=== PATIENT | female | born 1965 | race Caucasian/White ===

== ENCOUNTER 2016-09-01 09:42 | Emergency (ER) | payer OTHER ==
--- NOTE | 2016-09-01 10:12 | EDDOCDS ---
Physician Documentation [facility] Name: Paz Hyatt Age: 51 yrs Sex: Female : 1965 Arrival Date: 09/01/2016 Time: 09:42 Bed Triage 3 Private MD: Disposition: 09/01/16 10:05 Discharged to Home/Self Care. Impression: Zoster [herpes zoster]. - Condition is Stable. - Discharge Instructions: Shingles, [id number]. - Prescriptions for Ibuprofen 800 mg Oral Tablet - take 1 tablet by ORAL route every 8 hours As needed take with food; 30 tablet. [place] 5- 325 mg Oral Tablet - take 1 tablet by ORAL route every 6 hours As needed MDD: 4 tabs; 10 tablet. Valtrex 1 g Oral Tablet - take 1 tablet by ORAL route every 8 hours for 7 days; 21 tablet. - Medication Reconciliation, Local Pharmacy Hours form. - Follow up: Private Physician; When: 1 - 2 days; Reason: Recheck today's complaints, Continuance of care. Follow up: Emergency Department; Reason: Worsening of conditions. - Problem is new. - Symptoms are unchanged. Historical: - Allergies: SULFA (SULFONAMIDES); - Home Meds: 1. none - PMHx: none; - PSHx: ; left tib repair; right acl reconstruction; - Social history: Smoking status: Patient states was never smoker of tobacco. No barriers to communication noted, The patient speaks fluent Armenian, Speaks appropriately for age. - Family history: Not pertinent. - : The pt / caregiver states he / she is not on anticoagulants. Home medication list is obtained from the patient. - Exposure Risk Screening:: None identified. 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 3 in. (160.02 cm); Pain 7/10; 09:44 Body Mass Index 27.46 (70.31 kg, 160.02 cm) jlf MDM: 09:55 Financial registration complete. lg 10:07 [facility] Payment Agreement was scanned into [employer] and attached to record. lg Signatures: Orin España RN RN srm Rigoberto Cifuentes, Reg Reg lg Hortencia Piña,ARTHUR GIBSON kr3 Randi Scruggs, PAShellC PAShellC ef1 The chart was reviewed and I authenticate all verbal orders and agree with the evaluation and treatment provided.Attachments: 10:07 [facility] Payment Agreement lg MTDD
--- NOTE | 2016-09-01 10:12 | EDDOCDS ---
Nurse's Notes [facility] Name: Paz Hyatt Age: 51 yrs Sex: Female : 1965 Arrival Date: 09/01/2016 Time: 09:42 Bed Triage 3 Private MD: Diagnosis: Zoster [herpes zoster] Presentation: 09/01 09:45 Presenting complaint: Patient states: LLQ pain since thurs. tenderness on skin . pain srm worsened. nausea and loose stool. no abnormal vag bleeding. Risk factors: the patient reports no vaginal bleeding. Adult Sepsis Screening: The patient does not have new or worsening altered mentation. Patient's respiratory rate is less than 22. Systolic blood pressure is greater than 100. Patient has a qSOFA score of 0- Negative Sepsis Screen. Suicide/Homicide risk assessment- the patient denies having any suicidal and/or homicidal ideations and does not present with any other emotional, behavioral or mental health complaints. Status: Patient is not a utility service worker or dependent. Transition of care: patient was not received from another setting of care. 09:45 Acuity: NINA Level 3 srm 09:45 Method Of Arrival: Walkin/Carried/Asstd srm Triage Assessment: 09:47 General: Appears in no apparent distress, Behavior is appropriate for age, cooperative. srm Pain: Pain currently is 6 out of 10 on a pain scale. Pt Declines HIV testing. GI: Reports LLQpain. 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 none - PMHx: none; - PSHx: ; left tib repair; right acl reconstruction; - Social history: Smoking status: Patient states was never smoker of tobacco. No barriers to communication noted, The patient speaks fluent Danish, Speaks appropriately for age. - Family history: Not pertinent. - : The pt / caregiver states he / she is not on anticoagulants. Home medication list is obtained from the patient. - Exposure Risk Screening:: None identified. Screenin:10 Screening information is obtained from the patient. Fall risk: No risks identified. kr3 Assistance ADL's: requires no assistance with activities of daily living. Abuse/DV Screen: The patient / caregiver reports he/she is: not in a situation that causes fear, pain or injury. Nutritional screening: No deficits noted. Advance Directives: Currently, there is no health care proxy. home support is adequate. Assessment: 10:11 General: Appears in no apparent distress, comfortable, Behavior is cooperative. kr3 Neurological: No deficits noted. Respiratory: Respiratory effort is even, unlabored. Vital Signs: 09:44 BP 132 / 76; Pulse 85; Resp 18; Temp 98.1; Pulse Ox 100% ; Weight 70.31 kg; Height 5 jlf ft. 3 in. (160.02 cm); Pain 7/10; 09:44 Body Mass Index 27.46 (70.31 kg, 160.02 cm) [facility] Vitals: 09:44 Log In Time: September 01, 2016 at 09:41. [facility] ED Course: 09:43 Patient visited by Otilia Black PCA. jlf 09:43 Patient moved to Waiting jlf 09:44 Patient visited by Otilia Black PCA. jlf 09:44 Patient moved to Pre RCE jlf 09:46 Triage Initiated srm 09:47 Patient moved to Triage 3 srm 09:51 Randi Scruggs PA-C is PHCP. ef1 09:51 Yana Kaplan MD is Attending Physician. ef1 09:51 Patient visited by Randi Scruggs PA-C. ef1 10:07 [facility] Payment Agreement was scanned into [employer] and attached to record. lg 10:10 No IV's were initiated during this patient's visit. No procedures done that require kr3 assistance. 10:11 The patient / caregiver is instructed regarding the plan of care and ED course. kr3 Accompanied by Family Member, Patient has correct armband on for positive identification. Order Results: There are currently no results for this order. Outcome: 10:05 Discharge ordered by Provider. ef1 10:10 Discharge Assessment: patient administered narcotics - no. The following High Risk kr3 Discharge criteria are identified: None. Discharged to home ambulatory. Condition: stable. Discharge instructions given to patient, Instructed on discharge instructions, follow up and referral plans. medication usage, no driving heavy equipment, no drinking with medication, Demonstrated understanding of instructions, medications, Pt was receptive of discharge instructions/ teaching. Prescriptions given X 3. No special radiology studies were completed. Property sent home with patient. 10:11 Patient left the ED. kr3 Signatures: Orin España, RN RN srm Rigoberto Cifuentes, Reg Reg lg Hortencia Piña,ARTHUR RN kr3 Randi Scruggs, PA-C PA-C 1 Otilia Black, MOHSEN SALES CORRESPONDENT jl MTDD
--- NOTE | 2016-09-03 11:12 | EDDOCDS ---
Physician Documentation [facility] Name: Paz Hyatt Age: 51 yrs Sex: Female : 1965 Arrival Date: 09/01/2016 Time: 09:42 Bed Triage 3 Private MD: Disposition: 09/01/16 10:05 Discharged to Home/Self Care. Impression: Zoster [herpes zoster]. - Condition is Stable. - Discharge Instructions: Shingles, [id number]. - Prescriptions for Ibuprofen 800 mg Oral Tablet - take 1 tablet by ORAL route every 8 hours As needed take with food; 30 tablet. [place] 5- 325 mg Oral Tablet - take 1 tablet by ORAL route every 6 hours As needed MDD: 4 tabs; 10 tablet. Valtrex 1 g Oral Tablet - take 1 tablet by ORAL route every 8 hours for 7 days; 21 tablet. - Medication Reconciliation, Local Pharmacy Hours form. - Follow up: Private Physician; When: 1 - 2 days; Reason: Recheck today's complaints, Continuance of care. Follow up: Emergency Department; Reason: Worsening of conditions. - Problem is new. - Symptoms are unchanged. Historical: - Allergies: SULFA (SULFONAMIDES); - Home Meds: 1. none - PMHx: none; - PSHx: ; left tib repair; right acl reconstruction; - Social history: Smoking status: Patient states was never smoker of tobacco. No barriers to communication noted, The patient speaks fluent Bulgarian, Speaks appropriately for age. - Family history: Not pertinent. - : The pt / caregiver states he / she is not on anticoagulants. Home medication list is obtained from the patient. - Exposure Risk Screening:: None identified. 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 3 in. (160.02 cm); Pain 7/10; 09:44 Body Mass Index 27.46 (70.31 kg, 160.02 cm) jlf MDM: 09:55 Financial registration complete. lg 10:07 [facility] Payment Agreement was scanned into [employer] and attached to record. lg 14:37 T-Sheet-- Draft Copy was scanned into [employer] and attached to record. klr Signatures: Orin España, ARTHUR GIBSON srm Rigoberto Cifuentes, [facility] Reg lg Hortencia Piña RN RN kr3 Randi Scruggs, SUBHA pruitt1 Rossy Richter The chart was reviewed and I authenticate all verbal orders and agree with the evaluation and treatment provided.Attachments: 10:07 [facility] Payment Agreement lg 14:37 T-Sheet-- Draft Copy klr Chart Complete MTDD
--- NOTE | 2016-09-03 11:12 | EDDOCDS ---
Physician Documentation [facility] Name: Paz Hyatt Age: 51 yrs Sex: Female : 1965 Arrival Date: 09/01/2016 Time: 09:42 Bed Triage 3 Private MD: Disposition: 09/01/16 10:05 Discharged to Home/Self Care. Impression: Zoster [herpes zoster]. - Condition is Stable. - Discharge Instructions: Shingles, [id number]. - Prescriptions for Ibuprofen 800 mg Oral Tablet - take 1 tablet by ORAL route every 8 hours As needed take with food; 30 tablet. [place] 5- 325 mg Oral Tablet - take 1 tablet by ORAL route every 6 hours As needed MDD: 4 tabs; 10 tablet. Valtrex 1 g Oral Tablet - take 1 tablet by ORAL route every 8 hours for 7 days; 21 tablet. - Medication Reconciliation, Local Pharmacy Hours form. - Follow up: Private Physician; When: 1 - 2 days; Reason: Recheck today's complaints, Continuance of care. Follow up: Emergency Department; Reason: Worsening of conditions. - Problem is new. - Symptoms are unchanged. Historical: - Allergies: SULFA (SULFONAMIDES); - Home Meds: 1. none - PMHx: none; - PSHx: ; left tib repair; right acl reconstruction; - Social history: Smoking status: Patient states was never smoker of tobacco. No barriers to communication noted, The patient speaks fluent Mohawk, Speaks appropriately for age. - Family history: Not pertinent. - : The pt / caregiver states he / she is not on anticoagulants. Home medication list is obtained from the patient. - Exposure Risk Screening:: None identified. 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 3 in. (160.02 cm); Pain 7/10; 09:44 Body Mass Index 27.46 (70.31 kg, 160.02 cm) jlf MDM: 09:55 Financial registration complete. lg 10:07 [facility] Payment Agreement was scanned into [employer] and attached to record. lg 14:37 T-Sheet-- Draft Copy was scanned into [employer] and attached to record. klr Signatures: Orin España, ARTHUR GIBSON srm Rigoberto Cifuentes, [facility] Reg lg Hortencia Piña RN RN kr3 Randi Scruggs, SUBHA pruitt1 Rossy Richter The chart was reviewed and I authenticate all verbal orders and agree with the evaluation and treatment provided.Attachments: 10:07 [facility] Payment Agreement lg 14:37 T-Sheet-- Draft Copy klr Chart Complete MTDD
--- NOTE | 2016-09-03 11:12 | EDDOCDS ---
Nurse's Notes [facility] Name: Paz Hyatt Age: 51 yrs Sex: Female : 1965 Arrival Date: 09/01/2016 Time: 09:42 Bed Triage 3 Private MD: Diagnosis: Zoster [herpes zoster] Presentation: 09/01 09:45 Presenting complaint: Patient states: LLQ pain since thurs. tenderness on skin . pain srm worsened. nausea and loose stool. no abnormal vag bleeding. Risk factors: the patient reports no vaginal bleeding. Adult Sepsis Screening: The patient does not have new or worsening altered mentation. Patient's respiratory rate is less than 22. Systolic blood pressure is greater than 100. Patient has a qSOFA score of 0- Negative Sepsis Screen. Suicide/Homicide risk assessment- the patient denies having any suicidal and/or homicidal ideations and does not present with any other emotional, behavioral or mental health complaints. Status: Patient is not a commissioner of relocation services or dependent. Transition of care: patient was not received from another setting of care. 09:45 Acuity: NINA Level 3 srm 09:45 Method Of Arrival: Walkin/Carried/Asstd srm Triage Assessment: 09:47 General: Appears in no apparent distress, Behavior is appropriate for age, cooperative. srm Pain: Pain currently is 6 out of 10 on a pain scale. Pt Declines HIV testing. GI: Reports LLQpain. 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 none - PMHx: none; - PSHx: ; left tib repair; right acl reconstruction; - Social history: Smoking status: Patient states was never smoker of tobacco. No barriers to communication noted, The patient speaks fluent [place], Speaks appropriately for age. - Family history: Not pertinent. - : The pt / caregiver states he / she is not on anticoagulants. Home medication list is obtained from the patient. - Exposure Risk Screening:: None identified. Screenin:10 Screening information is obtained from the patient. Fall risk: No risks identified. kr3 Assistance ADL's: requires no assistance with activities of daily living. Abuse/DV Screen: The patient / caregiver reports he/she is: not in a situation that causes fear, pain or injury. Nutritional screening: No deficits noted. Advance Directives: Currently, there is no health care proxy. home support is adequate. Assessment: 10:11 General: Appears in no apparent distress, comfortable, Behavior is cooperative. kr3 Neurological: No deficits noted. Respiratory: Respiratory effort is even, unlabored. Vital Signs: 09:44 BP 132 / 76; Pulse 85; Resp 18; Temp 98.1; Pulse Ox 100% ; Weight 70.31 kg; Height 5 jlf ft. 3 in. (160.02 cm); Pain 7/10; 09:44 Body Mass Index 27.46 (70.31 kg, 160.02 cm) [facility] Vitals: 09:44 Log In Time: September 01, 2016 at 09:41. [facility] ED Course: 09:43 Patient visited by Otilia Black PCA. jlf 09:43 Patient moved to Waiting jlf 09:44 Patient visited by Otilia Black PCA. jlf 09:44 Patient moved to Pre RCE jlf 09:46 Triage Initiated srm 09:47 Patient moved to Triage 3 srm 09:51 Randi Scruggs PA-C is PHCP. ef1 09:51 Yana Kaplan MD is Attending Physician. ef1 09:51 Patient visited by Randi Scruggs PA-C. ef1 10:07 [facility] Payment Agreement was scanned into [employer] and attached to record. lg 10:10 No IV's were initiated during this patient's visit. No procedures done that require kr3 assistance. 10:11 The patient / caregiver is instructed regarding the plan of care and ED course. kr3 Accompanied by Family Member, Patient has correct armband on for positive identification. 14:37 T-Sheet-- Draft Copy was scanned into [employer] and attached to record. klr Order Results: There are currently no results for this order. Outcome: 10:05 Discharge ordered by Provider. ef1 10:10 Discharge Assessment: patient administered narcotics - no. The following High Risk kr3 Discharge criteria are identified: None. Discharged to home ambulatory. Condition: stable. Discharge instructions given to patient, Instructed on discharge instructions, follow up and referral plans. medication usage, no driving heavy equipment, no drinking with medication, Demonstrated understanding of instructions, medications, Pt was receptive of discharge instructions/ teaching. Prescriptions given X 3. No special radiology studies were completed. Property sent home with patient. 10:11 Patient left the ED. kr3 Signatures: Orin España, RN RN Rigoberto Guzmán, Hortencia Acosta lg, RN RN kr3 Randi Scruggs, PA-C PA-C ef1 Otilia Black, MOHSEN MERCANTILE AGENT Rossy Page Chart Complete MTDD
== END 2016-09-01 10:11 | disposition home or self-care (01) ==
LOC: M ED 09:42
DX: B02.9 Zoster without complications (principal); Z88.2 Allergy status to sulfonamides

== ENCOUNTER → 2017-02-27 | Outpatient (REF) | payer OTHER ==
[2017-02-27 12:42] LABS: MEAN CORPUSCULAR HEMOGLOBIN 30.8 pg (27.0-33.0); MEAN CORPUSCULAR HGB CONC 33.6 g/dl (32.0-36.5); MEAN CORPUSCULAR VOLUME 91.7 fl (80.0-96.0); RED CELL DISTRIBUTION WIDTH 13.3 % (11.5-14.5); WHITE BLOOD COUNT 6.6 K/mm3 (4.0-10.0)
[2017-02-27 13:09] LABS: ANION GAP 8 MEQ/L (8-16); BLOOD UREA NITROGEN 10 MG/DL (7-18); CALCIUM LEVEL 9.1 MG/DL (8.5-10.1); CARBON DIOXIDE LEVEL 26 MEQ/L (21-32); CHLORIDE LEVEL 106 MEQ/L (98-107); CREATININE FOR GFR 0.79 MG/DL (0.55-1.02); GLOMERULAR FILTRATION RATE > 60.0 (>51); GLUCOSE, FASTING 75 MG/DL (70-105); POTASSIUM SERUM 4.6 MEQ/L (3.5-5.1); SODIUM LEVEL 140 MEQ/L (136-145)
[2017-02-27 13:10] LABS: ALBUMIN/GLOBULIN RATIO 1.29 (1.00-1.93); ALKALINE PHOSPHATASE 39 U/L (45-117); ALT/SGPT 17 U/L (12-78); AST/SGOT 11 U/L (15-37); BILIRUBIN,TOTAL 0.5 MG/DL (0.2-1.0); CHOLESTEROL LEVEL 219 MG/DL (<200); TOTAL PROTEIN 7.1 GM/DL (6.4-8.2); TRIGLYCERIDES LEVEL 55 MG/DL (<150)
== END ==
LOC: M SFHCPLAZ 08:28
PROVIDERS: ATTEND Nurse Practitioner Adult Health
DX: Z00.00 Encounter for general adult medical examination without abnormal findings (principal)

== ENCOUNTER → 2018-01-29 | Outpatient (REF) | payer OTHER | LOC: M LAB REF 17:09 | DX: J02.9 Acute pharyngitis, unspecified (principal) ==

== ENCOUNTER → 2020-03-06 | Outpatient (REF) | payer OTHER ==
[2020-04-19 13:53] LABS: ALBUMIN 4.3 GM/DL (3.2-5.2); ALT/SGPT 26 U/L (12-78); BILIRUBIN,TOTAL 0.2 MG/DL (0.2-1.0); BLOOD UREA NITROGEN 18 MG/DL (7-18); CALCIUM LEVEL 9.4 MG/DL (8.5-10.1); CARBON DIOXIDE LEVEL 30 MEQ/L (21-32); CHLORIDE LEVEL 104 MEQ/L (98-107); CHOLESTEROL LEVEL 256 MG/DL (<200); CHOLESTEROL RISK RATIO 3.084 (<5); CREATININE FOR GFR 0.89 MG/DL (0.55-1.30); GLOMERULAR FILTRATION RATE > 60.0 (>51); GLUCOSE, FASTING 90 MG/DL (70-100); HDL CHOLESTEROL 83 MG/DL (>40); LDL CHOLESTEROL 156 MG/DL (<100); NON-HDL-C 173 MG/DL; POTASSIUM SERUM 4.9 MEQ/L (3.5-5.1); SODIUM LEVEL 139 MEQ/L (136-145); TOTAL PROTEIN 7.4 GM/DL (6.4-8.2); TRIGLYCERIDES LEVEL 87 MG/DL (<150)
== END ==
LOC: M SFHCPLAZ 09:44
PROVIDERS: ATTEND Nurse Practitioner Adult Health
DX: Z00.00 Encounter for general adult medical examination without abnormal findings (principal); Z13.29 Encounter for screening for other suspected endocrine disorder; Z13.220 Encounter for screening for lipoid disorders

== ENCOUNTER → 2021-03-23 | Outpatient (CLI) | payer OTHER ==
--- NOTE | 2021-03-23 09:51 | REP ---
INDICATION: PAIN COMPARISON: None. TECHNIQUE: AP, lateral, bilateral oblique and sunrise views. FINDINGS: The osseous structures and joint spaces are intact and essentially age-appropriate. There is no evidence for acute fracture or dislocation. No joint effusion is appreciated. Surrounding soft tissues are unremarkable. No subcutaneous emphysema or radiodense foreign body. IMPRESSION: Generalized age-related changes. <Electronically signed by Natalio Toney > 03/23/21 [id number]
[2021-03-23 10:53] LABS: ALBUMIN 3.9 GM/DL (3.2-5.2); ALT/SGPT 27 U/L (12-78); BILIRUBIN,TOTAL 0.4 MG/DL (0.2-1.0); BLOOD UREA NITROGEN 15 MG/DL (7-18); CALCIUM LEVEL 9.4 MG/DL (8.5-10.1); CARBON DIOXIDE LEVEL 32 MEQ/L (21-32); CHLORIDE LEVEL 107 MEQ/L (98-107); CHOLESTEROL LEVEL 256 MG/DL (<200); CHOLESTEROL RISK RATIO 2.782 (<5); CREATININE FOR GFR 0.69 MG/DL (0.55-1.30); GLOMERULAR FILTRATION RATE > 60.0 (>51); GLUCOSE, FASTING 89 MG/DL (70-100); HDL CHOLESTEROL 92 MG/DL (>40); LDL CHOLESTEROL 153 MG/DL (<100); NON-HDL-C 164 MG/DL; POTASSIUM SERUM 4.8 MEQ/L (3.5-5.1); SODIUM LEVEL 141 MEQ/L (136-145); TOTAL 25(OH) VITAMIN D 33.5 NG/ML (30.0-100.0); TRIGLYCERIDES LEVEL 57 MG/DL (<150)
== END ==
LOC: M PLAIMG 09:14
PROVIDERS: ATTEND Nurse Practitioner Adult Health
DX: Z00.00 Encounter for general adult medical examination without abnormal findings (principal); Z13.29 Encounter for screening for other suspected endocrine disorder; Z13.220 Encounter for screening for lipoid disorders; E55.9 Vitamin D deficiency, unspecified; M25.562 Pain in left knee

== ENCOUNTER → 2021-04-16 | Outpatient (CLI) | payer OTHER ==
[~2021-04-16] MED LIST: PROHANCE 279.3MG/ML 15ML VIAL As Ordered ONE
== END ==
LOC: M RAD 12:46
PROVIDERS: ATTEND Nurse Practitioner Adult Health
DX: Z12.39 Encounter for other screening for malignant neoplasm of breast (principal); Z84.81 Family history of carrier of genetic disease

== ENCOUNTER → 2022-10-22 | Outpatient (CLI) | payer OTHER ==
[2022-10-22 11:24] LABS: HEMATOCRIT 42.3 % (36.0-47.0); HEMOGLOBIN 13.2 g/dl (12.0-15.5); MEAN CORPUSCULAR HEMOGLOBIN 29.3 pg (27.0-33.0); MEAN CORPUSCULAR HGB CONC 31.2 g/dl (32.0-36.5); MEAN CORPUSCULAR VOLUME 93.8 fl (80.0-96.0); PLATELET COUNT, AUTOMATED 285 10^3/uL (150-450); RED BLOOD COUNT 4.51 10^6/uL (4.00-5.40); WHITE BLOOD COUNT 6.4 10^3/uL (4.0-10.0)
[2022-10-22 11:47] LABS: ALKALINE PHOSPHATASE 56 U/L (46-116); ALT/SGPT 35 U/L (7.0-40); AST/SGOT 20 U/L (<34); BILIRUBIN,TOTAL 0.5 MG/DL (0.3-1.2); BLOOD UREA NITROGEN 15 MG/DL (9-23); CALCIUM LEVEL 9.5 MG/DL (8.5-10.1); CARBON DIOXIDE LEVEL 31 MMOL/L (20-31); CHLORIDE LEVEL 106 MMOL/L (98-107); CHOLESTEROL LEVEL 281 MG/DL (<200); CHOLESTEROL RISK RATIO 3.34 (<5); CREATININE FOR GFR 0.67 MG/DL (0.55-1.30); GLOMERULAR FILTRATION RATE > 60.0 (>51); GLUCOSE, FASTING 86 MG/DL (60-100); HDL CHOLESTEROL 83.9 MG/DL (>40); LDL CHOLESTEROL 181.3 MG/DL (<100); NON-HDL-C 197.1 MG/DL; POTASSIUM SERUM 4.5 MMOL/L (3.5-5.1); SODIUM LEVEL 140 MMOL/L (136-145); TOTAL PROTEIN 6.7 G/DL (5.7-8.2); TRIGLYCERIDES LEVEL 79 MG/DL (<150)
[2022-10-22 11:48] LABS: THYROID STIMULATING HORMONE 1.655 uIU/ML (0.55-4.78)
[2022-10-22 11:49] LABS: TOTAL 25(OH) VITAMIN D 31.7 NG/ML (20.0-100.0)
== END ==
LOC: M PLALAB 07:03
PROVIDERS: ATTEND Nurse Practitioner Adult Health
DX: Z00.00 Encounter for general adult medical examination without abnormal findings (principal); E55.9 Vitamin D deficiency, unspecified; Z13.29 Encounter for screening for other suspected endocrine disorder; Z13.220 Encounter for screening for lipoid disorders

== ENCOUNTER → 2022-11-18 | Outpatient (REF) | payer OTHER | LOC: M SFHCWAGY 18:07 | PROVIDERS: ATTEND Nurse Practitioner Family | DX: Z12.4 Encounter for screening for malignant neoplasm of cervix (principal) | CPT/HCPCS: 87624; G0123 ==

== ENCOUNTER → 2023-10-19 | Outpatient (REF) | payer OTHER | LOC: M LAB REF 17:21 | PROVIDERS: ATTEND Physician Assistant | DX: J02.9 Acute pharyngitis, unspecified (principal) ==

== ENCOUNTER → 2023-11-13 | Outpatient (REF) | payer OTHER ==
[2023-11-13 12:54] LABS: AMORPHOUS SEDIMENT SMALL (NEGATIVE); APPEARANCE, URINE HAZY (CLEAR); BACTERIA, URINE AUTO 1+ (NEGATIVE); BILIRUBIN, URINE AUTO NEGATIVE (NEGATIVE); BLOOD, URINE BLOOD 1+ (NEGATIVE); COLOR, URINE YELLOW (YELLOW); GLUCOSE, URINE (UA) AUTO NEGATIVE (NEGATIVE); KETONE, URINE AUTO NEGATIVE (NEGATIVE); LEUKOCYTE ESTERASE, URINE AUTO 3+ (NEGATIVE); MUCUS, URINE SMALL (NEGATIVE); NITRITE, URINE AUTO POSITIVE (NEGATIVE); PROTEIN, URINE AUTO 2+ mg/dL (NEGATIVE); RBC, URINE AUTO 6 /HPF (0-3); SPECIFIC GRAVITY URINE AUTO 1.011 (1.002-1.035); SQUAMOUS EPITHELIAL CELL UR AU 0 /HPF (0-6); UROBILINOGEN, URINE AUTO 0.2 mg/dL (0.0-2.0); WBC, URINE AUTO TNTC /HPF (0-3)
== END ==
LOC: M LAB REF 11:43
PROVIDERS: ATTEND Physician Assistant
DX: N39.0 Urinary tract infection, site not specified (principal)

== ENCOUNTER → 2024-11-12 | Outpatient (CLI) | payer OTHER ==
[2024-11-12 10:35] LABS: HEMATOCRIT 41.1 % (36.0-47.0); MEAN CORPUSCULAR HEMOGLOBIN 29.2 pg (27.0-33.0); MEAN CORPUSCULAR HGB CONC 31.6 g/dl (32.0-36.5); MEAN CORPUSCULAR VOLUME 92.4 fl (80.0-96.0); PLATELET COUNT, AUTOMATED 273 10^3/uL (150-450); RED BLOOD COUNT 4.45 10^6/uL (4.00-5.40); WHITE BLOOD COUNT 6.5 10^3/uL (4.0-10.0)
[2024-11-12 10:43] LABS: ALBUMIN 3.8 G/DL (3.2-5.2); ALKALINE PHOSPHATASE 40 U/L (35-104); ALT/SGPT 18 U/L (7.0-40); AST/SGOT 11 U/L (<34); BILIRUBIN,TOTAL 0.4 MG/DL (0.3-1.2); BLOOD UREA NITROGEN 16 MG/DL (9-23); CALCIUM LEVEL 9.1 MG/DL (8.5-10.1); CARBON DIOXIDE LEVEL 30 MMOL/L (20-31); CHLORIDE LEVEL 105 MMOL/L (98-107); CHOLESTEROL LEVEL 260 MG/DL (<200); CHOLESTEROL RISK RATIO 3.29 (<5); CREATININE FOR GFR 0.67 MG/DL (0.55-1.30); FREE T4 1.17 NG/DL (0.89-1.76); GLOMERULAR FILTRATION RATE > 90.0 (>51); GLUCOSE, FASTING 88 MG/DL (60-100); HDL CHOLESTEROL 78.9 MG/DL (>40); LDL CHOLESTEROL 166.5 MG/DL (<100); NON-HDL-C 181.1 MG/DL; POTASSIUM SERUM 4.4 MMOL/L (3.5-5.1); SODIUM LEVEL 142 MMOL/L (136-145); TOTAL PROTEIN 6.7 G/DL (5.7-8.2); TRIGLYCERIDES LEVEL 73 MG/DL (<150)
[2024-11-12 10:44] LABS: TOTAL 25(OH) VITAMIN D 36.2 NG/ML (20.0-100.0)
== END ==
LOC: M PLALAB 07:41
PROVIDERS: ATTEND Nurse Practitioner Adult Health
DX: Z00.00 Encounter for general adult medical examination without abnormal findings (principal); Z13.220 Encounter for screening for lipoid disorders; E55.9 Vitamin D deficiency, unspecified; Z13.29 Encounter for screening for other suspected endocrine disorder

== ENCOUNTER → 2024-11-24 | Outpatient (REF) | payer OTHER ==
[2024-11-26 14:24] LABS: HPV APTIMA Not Detected (Not Detected)
== END ==
LOC: M SFHCWAGY 13:16
PROVIDERS: ATTEND Nurse Practitioner Family
DX: Z12.4 Encounter for screening for malignant neoplasm of cervix (principal)
CPT/HCPCS: 87624; G0123